=== PATIENT | female | born 1960 | race Caucasian/White ===

== ENCOUNTER → 2016-09-12 | Outpatient (REF) | payer OTHER ==
[~2016-09-12] MED LIST: ALBU17IN INH; AVEL1TAB PO; AZEL0.055; AZMACORT PO; BENZ100C5 PO; GUAI20TA PO; LEVA750T PO; PARO40TA2 PO; PRED50TA PO; VITMTA PO; albuterol mdi PO
== END ==
LOC: M SFHCPLAZ 15:36
PROVIDERS: ATTEND Physician Assistant Medical
DX: Z12.11 Encounter for screening for malignant neoplasm of colon (principal); E04.1 Nontoxic single thyroid nodule; E55.9 Vitamin D deficiency, unspecified; Z53.9 Procedure and treatment not carried out, unspecified reason

== ENCOUNTER → 2016-09-17 | Outpatient (CLI) | payer OTHER ==
--- NOTE | 2016-09-18 07:32 | REP ---
Clinical: Lung screening. History smoking. Technique: Axial noncontrast low-dose images from the thoracic inlet to the upper abdomen using lung screening technique. Comparison: 05/26/2016, 11/14/2012. Findings: Moderate bullous emphysematous changes and scattered interstitial changes again noted primarily involving the upper lung zones (right greater than left). A 6 mm noncalcified nodular density in the left upper lobe (images 42 - 43) is relatively similar when compared to prior examinations. No further obvious pulmonary nodule or mass lesion identified. No pleural effusion/reaction. No pneumothorax. Impression: Lung-RADS category IIS. 6 mm nodular density in the GAUTAM and emphysematous changes are similar to prior examinations dating to 2012. Yearly screening may be warranted. Signed by Ethan Keenan MD 09/18/2016 07:24 A
== END ==
LOC: M RAD 12:39
PROVIDERS: ATTEND Internal Medicine Pulmonary Disease
DX: Z12.2 Encounter for screening for malignant neoplasm of respiratory organs (principal); R91.8 Other nonspecific abnormal finding of lung field; F17.210 Nicotine dependence, cigarettes, uncomplicated

== ENCOUNTER → 2016-09-17 | Outpatient (CLI) | payer OTHER ==
[2016-09-17 10:41] LABS: BASO % 0.9 % (0.0-1.0); EOS # 0.1 K/mm3 (0.0-0.50); EOS % 2.2 % (0.0-3.0); LARGE UNSTAINED CELL # 0.1 K/mm3 (0.0-0.4); LARGE UNSTAINED CELL % 1.6 % (0.0-4.0); LYMPH # 1.5 K/mm3 (1.5-4.5); LYMPH % 34.3 % (24.0-44.0); MEAN CORPUSCULAR HGB CONC 33.6 g/dl (32.0-36.5); MEAN CORPUSCULAR VOLUME 89.4 fl (80.0-96.0); MONO # 0.3 K/mm3 (0.0-0.8); MONO % 6.7 % (0.0-5.0); NEUTROPHILS # 2.3 K/mm3 (1.8-7.7); NEUTROPHILS % 54.3 % (36.0-66.0); PLATELET COUNT, AUTOMATED 219 k/mm3 (150-450); RED CELL DISTRIBUTION WIDTH 12.4 % (11.5-14.5); WHITE BLOOD COUNT 4.2 K/mm3 (4.0-10.0)
[2016-09-17 11:03] LABS: FREE T4 1.06 NG/DL (0.76-1.46)
--- NOTE | 2016-09-17 12:16 | REP ---
CERVICAL SPINE, SIX VIEWS: HISTORY: Cervicalgia. There is no acute fracture. The C5-6 intervertebral disc is decreased in height consistent with disc degeneration. Anterior osteophytes are present on C5. There are 1.5 mm of retrolisthesis of C3 on C4. This reduces with flexion and returns to a 1.5 mm with extension. IMPRESSION: Degenerative change as described above. Signed by Ranjith Flores MD 09/17/2016 12:18 P
--- NOTE | 2016-09-17 13:32 | REP ---
RIGHT SHOULDER, THREE VIEWS: HISTORY: Pain. There is no acute fracture or dislocation. There is narrowing of the acromioclavicular joint with associated osteophyte formation. IMPRESSION: Degenerative change as described above. Signed by Ranjith Flores MD 09/17/2016 01:40 P
== END ==
LOC: M LAB 09:38
PROVIDERS: ATTEND Physician Assistant Medical
DX: M19.011 Primary osteoarthritis, right shoulder (principal); M47.892 Other spondylosis, cervical region; E55.9 Vitamin D deficiency, unspecified; E04.1 Nontoxic single thyroid nodule; Z12.11 Encounter for screening for malignant neoplasm of colon

== ENCOUNTER → 2016-10-17 | Outpatient (CLI) | payer OTHER ==
[~2016-10-17] VITALS: Ht 167.6 cm; Wt 66.7 kg
[~2016-10-17] MED LIST changes: +ALBU17IN2 INH; +ASPI1TAB PO; +BREO1INH3 INH; +DRIS50002 PO; +INCR1INH INH; +LIDOCAINE 2% INJ 100 MG/5 ML SDV (FOR ANES.) As Ordered ONE; +NS 1,000 ML IV ONE; +PROPOFOL 500 MG/50 ML VIAL As Ordered ONE
--- NOTE | 2016-10-17 11:16 | ROOR ---
Patient Name: Grecia Jeong Procedure Date: 10/17/2016 10:47 AM Date of : 1960 Age: 56 Room: [facility] Gender: Female Note Status: Finalized Procedure: Colonoscopy Indications: Screening for colorectal malignant neoplasm Providers: Juan COLUNGA MD Referring MD: April Gray Requesting Provider: Medicines: Monitored Anesthesia Care Complications: No immediate complications. Procedure: Pre-Anesthesia Assessment: - The heart rate, respiratory rate, oxygen saturations, blood pressure, adequacy of pulmonary ventilation, and response to care were monitored throughout the procedure. The Colonoscope was introduced through the anus and advanced to the cecum, identified by appendiceal orifice and ileocecal valve. The colonoscopy was performed without difficulty. The patient tolerated the procedure well. The quality of the bowel preparation was good. Findings: The perianal and digital rectal examinations were normal. Two sessile polyps were found in the ascending colon and cecum. The polyps were 4 to 5 mm in size. These polyps were removed with a cold snare. Resection and retrieval were complete. A 5 mm polyp was found in the splenic flexure. The polyp was sessile. The polyp was removed with a cold snare. Resection and retrieval were complete. Two sessile polyps were found in the sigmoid colon. The polyps were 4 to 5 mm in size. These polyps were removed with a cold snare. Resection and retrieval were complete. Three sessile polyps were found in the rectum. The polyps were 3 to 4 mm in size. These polyps were removed with a cold snare. Resection and retrieval were complete. Small Internal Hemorrhoids. A few small-mouthed diverticula were found in the sigmoid colon. The exam was otherwise without abnormality on direct and retroflexion views. Impression: - Two 4 to 5 mm polyps in the ascending colon and in the cecum, removed with a cold snare. Resected and retrieved. - One 5 mm polyp at the splenic flexure, removed with a cold snare. Resected and retrieved. - Two 4 to 5 mm polyps in the sigmoid colon, removed with a cold snare. Resected and retrieved. - Three 3 to 4 mm polyps in the rectum, removed with a cold snare. Resected and retrieved. - Small Internal Hemorrhoids. - Mild diverticulosis in the sigmoid colon. - The examination was otherwise normal on direct and retroflexion views. Recommendation: - Repeat colonoscopy in 3 years for surveillance. Juan Colunga MD Juan COLUNGA MD 10/17/2016 11:15:28 AM This report has been signed electronically. Number of Addenda: 0 Note Initiated On: 10/17/2016 10:47 AM Estimated Blood Loss: Estimated blood loss: none.
[2016-10-17 11:40] VITALS: BP 119/64
== END | disposition home or self-care (01) ==
LOC: M OPP 09:14
PROVIDERS: ATTEND Internal Medicine Gastroenterology
DX: Z12.11 Encounter for screening for malignant neoplasm of colon (principal); D12.2 Benign neoplasm of ascending colon; D12.3 Benign neoplasm of transverse colon; D12.5 Benign neoplasm of sigmoid colon; D12.8 Benign neoplasm of rectum; K57.30 Diverticulosis of large intestine without perforation or abscess without bleeding; K64.8 Other hemorrhoids; M19.90 Unspecified osteoarthritis, unspecified site; M54.2 Cervicalgia; M54.89 Other dorsalgia; J44.9 Chronic obstructive pulmonary disease, unspecified; F17.290 Nicotine dependence, other tobacco product, uncomplicated; Z79.82 Long term (current) use of aspirin; Z79.899 Other long term (current) drug therapy; Z80.3 Family history of malignant neoplasm of breast; Z80.0 Family history of malignant neoplasm of digestive organs

== ENCOUNTER → 2016-11-18 | Outpatient (CLI) | payer OTHER ==
[~2016-11-18] MED LIST changes: -LIDOCAINE 2% INJ 100 MG/5 ML SDV (FOR ANES.) As Ordered ONE; -NS 1,000 ML IV ONE; -PROPOFOL 500 MG/50 ML VIAL As Ordered ONE
--- NOTE | 2016-11-18 16:01 | REP ---
BILATERAL MAMMOGRAM, BASELINE STUDY: FAMILY HISTORY: Breast cancer in mother and maternal aunt. Bilateral MLO and CC views are performed. Nodule is seen in the outer right breast measuring about 1.1 cm in diameter, oval in shape and appearing fairly well defined. There appear to be tiny calcifications in the upper outer quadrant of the left breast. Additional views are required. IMPRESSION: ACR 0 incomplete. Oval 1.1 cm nodule in the outer right breast. Recommend spot compression views and ultrasound to further evaluate. Tiny calcifications seen in the upper outer quadrant of the left breast. Magnification views are recommended. BI-RADS/ACR category 0 mammogram. Incomplete. Additional imaging and/or prior images are needed before a final assessment can be assigned. This mammogram was interpreted with the aid of an FDA-approved computer-aided detection system. The patient states she/he has not had a clinical breast exam in over a year. The patient letter being requested is M0.
--- NOTE | 2016-11-19 05:20 | REP ---
Clinical: Follow-up thyroid nodule. Technique: Real time art scale ultrasound examination using linear high frequency transducer. Comparison: 01/14/2013. Findings: The thyroid gland is mildly enlarged and diffusely heterogeneous. The right lobe measures 5.8 x 1.6 x 1.6 cm and includes 8 mm cyst and 5 mm complex nodule in the mid pole region. Left lobe measures 4.9 x 1.5 x 1.3 cm without significant discrete lesion. Isthmus measures 2.8 mm in width. Impression: Heterogeneous thyroid gland with most prominent findings as described above including 8 mm cyst and 5 mm complex nodule in the right lobe mid pole region. Signed by Ethan Keenan MD 11/19/2016 05:11 A
== END ==
LOC: M WHC 12:54
PROVIDERS: ATTEND Physician Assistant Medical
DX: R92.2 Inconclusive mammogram (principal); E04.1 Nontoxic single thyroid nodule
CPT/HCPCS: 76536; G0202

== ENCOUNTER → 2016-11-22 | Outpatient (CLI) | payer OTHER ==
--- NOTE | 2016-11-22 13:33 | REP ---
BILATERAL DIAGNOSTIC MAMMOGRAM WITH RIGHT BREAST ULTRASOUND: Bilateral diagnostic mammogram performed. Correlation made with recent baseline mammogram of 11/18/2016. There is a family history of breast cancer in mother and maternal aunt. Spot compression views of the right breast again show a 1 cm oval well defined and smoothly marginated nodule in the outer right breast. Magnification views of the left breast confirm the presence of multiple clustered pleomorphic microcalcifications in the upper outer quadrant of the left breast. Sterotactic biopsy is recommended. Real-time sonographic evaluation of the outer right breast demonstrates a cyst measuring 10 x 5 x 8 mm. IMPRESSION: ACR 4 suspicious mammogram left breast. Clustered pleomorphic microcalcifications in the upper outer quadrant of the left breast are confirmed. Recommend sterotactic biopsy of these calcifications in the left breast. ACR 2 benign mammogram right breast with a nodule identified laterally in the right breast corresponding to a cyst by ultrasound. The patient letter being requested is M4. Signed by Chadd Mahajan MD 11/22/2016 03:28 P
== END ==
LOC: M RAD 11:25
PROVIDERS: ATTEND Internal Medicine
DX: R92.2 Inconclusive mammogram (principal); N63 Unspecified lump in breast
CPT/HCPCS: 76642; G0204

== ENCOUNTER → 2016-12-09 | Outpatient (CLI) | payer OTHER ==
[~2016-12-09] MED LIST changes: -AVEL1TAB PO; +AVEL1TAB3 PO; -LEVA750T PO; +LEVA750T7 PO; +NAPR500T3 PO; +NORCOTAB PO; +PROT1TAB2 PO; +SUCR1SS PO; +VITA-171 PO; +muscle relaxer
== END ==
LOC: M LAB 09:51
PROVIDERS: ATTEND Physician Assistant Medical
DX: E55.9 Vitamin D deficiency, unspecified (principal)

== ENCOUNTER → 2016-12-16 | Outpatient (CLI) | payer OTHER ==
[~2016-12-16] MED LIST changes: +LIDOCAINE 1% MDV 20ML VIAL As Ordered ONE
--- NOTE | 2016-12-16 13:23 | REP ---
Specimen radiography left breast. History: Suspicious microcalcifications seen on recent mammography. Findings: Specimen radiography demonstrates numerous polymorphic heterogeneous microcalcifications in at least five of the six removed specimens. Impression: Specimen radiography demonstrates microcalcifications. Signed by Slick Ruff MD 12/16/2016 04:23 P
--- NOTE | 2016-12-16 13:38 | REP ---
Digital diagnostic unilateral left breast mammography with CAD: History: Marker clip placement views post stereotactic needle biopsy. Findings: CC and true MLO views of the left breast obtained just post needle biopsy demonstrate the marker clip in good position adjacent to the area where prior mammography from November 22, 2016 showed microcalcifications. No hematoma is seen. Impression: Marker clip in good position. Signed by Slick Ruff MD 12/16/2016 04:23 P
--- NOTE | 2016-12-16 17:00 | REP ---
STEREOTACTIC LEFT BREAST BIOPSY: The procedure was performed under the direct supervision of Dr. Ruff. The patient has a history of clustered pleomorphic microcalcifications in the upper outer quadrant of the left breast seen on a previous mammogram dated 11/22/2016. The risks and benefits of the procedure were explained to the patient and informed consent was obtained. A cranial caudal approach was utilized. The calcifications were localized using stereotactic mammographic guidance. The skin was prepped and draped in a sterile fashion 1% Xylocaine was used as a local anesthetic. An 8-gauge suction assisted Mammotome needle was inserted and 6 core biopsy samples were obtained. Specimen radiograph demonstrates the presence of calcifications to be within the specimen. A marker clip was placed at the biopsy site. The patient tolerated the procedure well and there were no immediate complications. After the appropriate amount of monitored convalescence the patient was discharged from the department. Reviewed by ARIANNA Hood 12/17/2016 09:05 AEdited and Signed by Slick Ruff MD 12/17/2016 04:00 P
== END ==
LOC: M RADPRO 10:53
PROVIDERS: ATTEND Physician Assistant Medical
DX: D24.2 Benign neoplasm of left breast (principal); R92.0 Mammographic microcalcification found on diagnostic imaging of breast; Z72.0 Tobacco use; Z91.040 Latex allergy status; Z79.82 Long term (current) use of aspirin; Z79.899 Other long term (current) drug therapy

== ENCOUNTER 2016-12-21 06:21 | Emergency (ER) | payer OTHER ==
[~2016-12-21] VITALS: Ht 162.6 cm; Wt 67.3 kg
[~2016-12-21 06:21] MED LIST changes: -LIDOCAINE 1% MDV 20ML VIAL As Ordered ONE; -NAPR500T3 PO; -NORCOTAB PO; -PROT1TAB2 PO; -SUCR1SS PO; -VITA-171 PO; -muscle relaxer
[2016-12-21] MEDS ORDERED: VITA-171 PO (06:31)
[2016-12-21] MEDS ORDERED: muscle relaxer (06:31)
[2016-12-21] MEDS ORDERED: NAPR500T3 PO (08:29)
[2016-12-21 08:41] VITALS: BP 129/69
--- NOTE | 2016-12-21 09:30 | REP ---
RIGHT SHOULDER, THREE VIEWS: There is no evidence of an acute fracture, dislocation or intrinsic bone disease. IMPRESSION: No fracture or dislocation. Signed by Chadd Mahajan MD 12/21/2016 03:18 P
== END 2016-12-21 08:46 | disposition home or self-care (01) ==
LOC: M ED 06:21
DX: M75.31 Calcific tendinitis of right shoulder (principal); J45.909 Unspecified asthma, uncomplicated; M19.90 Unspecified osteoarthritis, unspecified site; F17.210 Nicotine dependence, cigarettes, uncomplicated; Z91.040 Latex allergy status

== ENCOUNTER 2016-12-30 11:10 | Emergency (ER) | payer OTHER ==
[~2016-12-30] VITALS: Ht 165.1 cm; Wt 148.0 kg
[~2016-12-30 11:10] MED LIST changes: +NAPR500T3 PO; +VITA-171 PO; +muscle relaxer
[2016-12-30 11:48] LABS: BASO % 0.5 % (0.0-1.0); EOS # 0.2 K/mm3 (0.0-0.50); EOS % 2.5 % (0.0-3.0); LARGE UNSTAINED CELL # 0.1 K/mm3 (0.0-0.4); LARGE UNSTAINED CELL % 0.9 % (0.0-4.0); LYMPH # 1.5 K/mm3 (1.5-4.5); LYMPH % 23.7 % (24.0-44.0); MEAN CORPUSCULAR HEMOGLOBIN 30.6 pg (27.0-33.0); MEAN CORPUSCULAR HGB CONC 33.7 g/dl (32.0-36.5); MEAN CORPUSCULAR VOLUME 90.9 fl (80.0-96.0); MONO # 0.3 K/mm3 (0.0-0.8); MONO % 5.5 % (0.0-5.0); NEUTROPHILS # 4.1 K/mm3 (1.8-7.7); NEUTROPHILS % 66.8 % (36.0-66.0); PLATELET COUNT, AUTOMATED 244 k/mm3 (150-450); RED CELL DISTRIBUTION WIDTH 12.7 % (11.5-14.5); WHITE BLOOD COUNT 6.1 K/mm3 (4.0-10.0)
[2016-12-30 11:54] LABS: INR 0.98
[2016-12-30 12:10] LABS: ALBUMIN 3.3 GM/DL (3.2-5.2); ALBUMIN/GLOBULIN RATIO 0.85 (1.00-1.93); ALKALINE PHOSPHATASE 89 U/L (45-117); ALT/SGPT 14 U/L (12-78); ANION GAP 5 MEQ/L (8-16); AST/SGOT 12 U/L (15-37); BILIRUBIN,DIRECT < 0.1 MG/DL (0.0-0.2); BILIRUBIN,TOTAL 0.3 MG/DL (0.2-1.0); BLOOD UREA NITROGEN 19 MG/DL (7-18); CARBON DIOXIDE LEVEL 27 MEQ/L (21-32); CHLORIDE LEVEL 108 MEQ/L (98-107); CREATININE FOR GFR 0.67 MG/DL (0.55-1.02); FREE T4 1.13 NG/DL (0.76-1.46); GLOMERULAR FILTRATION RATE > 60.0 (>51); GLUCOSE, FASTING 93 MG/DL (70-105); POTASSIUM SERUM 3.9 MEQ/L (3.5-5.1); SODIUM LEVEL 140 MEQ/L (136-145); TOTAL PROTEIN 7.2 GM/DL (6.4-8.2)
[2016-12-30] MEDS ORDERED: MORPHINE 4 MG/ML 1ML SYRINGE IV ONE (12:30)
[2016-12-30] MEDS ORDERED: ISOVUE-370 76% 100ML VIAL (Q9967) As Ordered ONE (13:14)
--- NOTE | 2016-12-30 13:14 | REP ---
REASON: Chest pain. COMPARISON: 05/24/2016 FINDINGS: The technique utilized in obtaining the radiograph has magnified the cardiac silhouette and accentuated the interstitial markings. The superior mediastinal structures are midline. The cardiac silhouette is unremarkable in size, shape, and position. The diaphragmatic surfaces of the lungs are regular, and the costophrenic angles are clear. The pulmonary kenny are clear. The imaged osseous structures are intact. IMPRESSION: There is no acute cardiopulmonary disease. Signed by David Lofton DO 12/30/2016 01:53 P
[2016-12-30] MEDS ORDERED: NS 1,000 ML IV ONE (13:15)
[2016-12-30] MEDS ORDERED: KETOROLAC 30 MG/ML VIAL (J1885) IV ONE (13:15)
[2016-12-30] MEDS ORDERED: GI COCKTAIL 50ML BTL(HYOSCYAMINE/MAALOX/LIDOCAINE VISCOUS)(1:3:1) PO ONE (14:15)
[2016-12-30] MEDS ORDERED: PANTOPRAZOLE 40MG TAB (PROTONIX) PO ONE (15:00)
[2016-12-30] MEDS ORDERED: NORCO, ANEXSIA 5/325MG TABLET (HYDROcodone/ACETAMINOPHEN) PO ONE (15:00)
[2016-12-30] MEDS ORDERED: SUCRALFATE SUSP 1GM/10ML UD PO ONE (15:00)
--- NOTE | 2016-12-30 15:07 | REP ---
CT angiogram of the chest 12/30/2016 Comparison portable chest 12/30/2016, CT angiogram chest 06/17/2015. The patient received a bolus that of 75 mL of Isovue 370 scanning through the chest with MIP reformatting of both coronal and sagittal thick slab reconstructions. Findings: There is some dependent atelectatic changes in both lower lung zones posteriorly. I see no dense consolidation, acute infiltrate or parenchymal mass. There is a small Bochdalek hernia posteriorly in the right diaphragm. Central lobular emphysematous changes mid and upper lung zones bilaterally, left greater than right but unchanged. Heart is not enlarged. There is no pericardial thickening or effusion. There is some calcifications of the arch but no aneurysm or dissection in the aorta. The main, right and left pulmonary arteries are without persistent filling defects. There is a small air bubble in the main pulmonary artery segment seen on image 96. Unopacified blood in the right mediastinum in the SVC. The main right and left pulmonary arteries are without thrombus. Were also intact with no vessel cutoff or filling defects. In the upper abdomen that portion of liver and spleen included were intact without acute finding. Adrenal glands and upper poles of the kidneys along with the visualized portion of pancreas and gallbladder which were incompletely visualized show no acute finding. Impression: 1. No CT evidence of pulmonary thromboembolism. There is a tiny air bubble in the main pulmonary artery segment consistent with venous injection. 2. No pathologic sized mediastinal or hilar adenopathy. 3. No aortic aneurysm or dissection. Signed by Lit Farr MD 12/30/2016 09:22 P
[2016-12-30] MEDS ORDERED: PROT1TAB2 PO (15:27)
[2016-12-30] MEDS ORDERED: SUCR1SS PO (15:27)
[2016-12-30] MEDS ORDERED: NORCOTAB PO (15:27)
[2016-12-30 15:47] VITALS: BP 106/53
--- NOTE | 2016-12-30 18:37 | ECGEPIP ---
Stationary ECG Study [facility] - ED Test Date: 2016-12-30 Pat Name: BHARATHI JUAREZ Department: Room: - Gender: F Patient Observer: mamta : 1960 Requested By: Carrie Hill Order Number: [id number] Reading MD: Conrad Pierce Measurements Intervals Juliette Rate: 60 P: 55 WA: 176 QRS: 23 QRSD: 82 T: 39 QT: 405 QTc: 407 Interpretive Statements SINUS RHYTHM Electronically Signed On 12-30-2016 18:36:56 EDT by Conrad Pierce
== END 2016-12-30 15:51 | disposition home or self-care (01) ==
LOC: M ED 11:10
DX: R07.89 Other chest pain (principal); J45.909 Unspecified asthma, uncomplicated; Z72.0 Tobacco use
CPT/HCPCS: 71010; 71275; 80048; 80076; 82550; 82553; 83690; 84439; 84443; 85025; 85379; 85610; 85730; 93000; 93041; 94760; 96374; 96375; 99285; J1885; Q9967

== ENCOUNTER 2017-02-02 16:25 | Emergency (ER) | payer OTHER ==
[~2017-02-02] VITALS: Ht 165.1 cm; Wt 150.0 kg
[~2017-02-02 16:25] MED LIST changes: +NORCOTAB PO; +PROT1TAB2 PO; +SUCR1SS PO
--- NOTE | 2017-02-02 18:03 | REP ---
Clinical: Trauma. Fall. Technique: AP, lateral, bilateral oblique views of the left elbow. Findings: Soft tissue swelling is appreciated. Lateral view demonstrates joint effusion and AP and oblique views suggest a nondisplaced fracture involving the radial head. Impression: Swelling and effusion. Nondisplaced radial head fracture. Signed by Ethan Keenan MD 02/02/2017 05:55 P
[2017-02-02] MEDS ORDERED: NORCOTAB PO (18:23)
[2017-02-02] MEDS ORDERED: NORCO 5/325MG TABLET (BULK FOR ED) PO ONE (18:30)
[2017-02-02 18:38] VITALS: BP 125/62
--- NOTE | 2017-02-02 18:49 | REP ---
Clinical: Trauma. Technique: AP, lateral left forearm. Findings: The osseous structures and joint spaces are intact and normal. There is no evidence for acute fracture or dislocation. However, lateral view suggests joint effusion which may reflect occult injury at the elbow. No subcutaneous emphysema or radiodense foreign body. Impression: No definite acute fracture or dislocation. Joint effusion at the elbow cannot exclude occult injury. Signed by Ethan Keenan MD 02/02/2017 06:47 P
== END 2017-02-02 18:39 | disposition home or self-care (01) ==
LOC: M ED 16:25
DX: S52.125A Nondisplaced fracture of head of left radius, initial encounter for closed fracture (principal); W19.XXXA Unspecified fall, initial encounter; Y92.099 Unspecified place in other non-institutional residence as the place of occurrence of the external cause; Y93.89 Activity, other specified; Y99.9 Unspecified external cause status

== ENCOUNTER 2017-02-11 13:58 | Outpatient (RCR) | payer OTHER | END 2017-03-01 | LOC: M PT 13:58 | PROVIDERS: ATTEND Physician Assistant Medical | DX: Z51.89 Encounter for other specified aftercare (principal); M50.30 Other cervical disc degeneration, unspecified cervical region ==

== ENCOUNTER → 2017-12-10 | Outpatient (REF) | payer OTHER ==
[2017-12-10 17:57] LABS: VITAMIN B12 LEVEL 1148 PG/ML
[2017-12-10 17:58] LABS: FOLATE 17.6 NG/ML
[2017-12-10 18:02] LABS: FREE T4 1.12 NG/DL (0.76-1.46); RHEUMATOID FACTOR QUANT < 10.0 IU/ML (<15.0); THYROID STIMULATING HORMONE 0.976 uIU/ML (0.358-3.740); TOTAL PROTEIN 7.6 GM/DL (6.4-8.2)
[2017-12-11 14:00] LABS: ALBUMIN 3.93 GM/DL (3.29-5.55); ALBUMIN % 51.7 % (55.8-66.1); ALPHA-1-GLOBULIN % 5.1 % (2.9-4.9); ALPHA-1-GLOBULINS 0.39 GM/DL (0.17-0.41); ALPHA-2-GLOBULINS 0.87 GM/DL (0.42-0.99); ALPHA-2-GLOBULINS % 11.4 % (7.1-11.8); BETA-1-GLOBULINS 0.48 GM/DL (0.28-0.60); BETA-1-GLOBULINS % 6.3 % (4.7-7.2); BETA-2-GLOBULINS 0.43 GM/DL (0.19-0.55); BETA-2-GLOBULINS % 5.7 % (3.2-6.5); GAMMA GLOBULIN % 19.8 % (11.1-18.8)
[2017-12-16 11:00] LABS: DRVV SCREEN 40.2 SEC
[2017-12-20 08:05] LABS: ANTI DOUBLE STRAND-DNA AB 1 IU/mL (0-9); ANTINUCLEAR ANTIBODIES DIRECT Positive (Negative); RNP ANTIBODIES 0.4 AI (0.0-0.9); SJOGREN'S ANTI SS-A <0.2 AI (0.0-0.9); SJOGREN'S ANTI SS-B <0.2 AI (0.0-0.9); SMITH ANTIBODIES <0.2 AI (0.0-0.9); VITAMIN B1 LEVEL WHOLE BLOOD 134.3 nmol/L (66.5-200.0); VITAMIN B6,PYRIDOXAL PHOSPHATE 2.9 ug/L (2.0-32.8); VITAMIN E(ALPHA TOCOPHEROL) 8.4 mg/L (7.0-25.1); VITAMIN E(GAMMA TOCOPHEROL) 2.9 mg/L (0.5-5.5)
== END ==
LOC: M LABNEURO 11:45
DX: G62.9 Polyneuropathy, unspecified (principal)
CPT/HCPCS: 82746

== ENCOUNTER → 2017-12-12 | Outpatient (REF) | payer OTHER ==
[2017-12-12 15:22] LABS: ERYTHROCYTE SEDIMENTATION RATE 33 mm/hr (0-30)
== END ==
LOC: M LABNEURO 11:23
DX: Z00.00 Encounter for general adult medical examination without abnormal findings (principal)
CPT/HCPCS: 85652

== ENCOUNTER → 2018-01-08 | Outpatient (CLI) | payer OTHER | LOC: M RAD 14:10 | DX: E04.1 Nontoxic single thyroid nodule (principal) | CPT/HCPCS: 76536 ==

== ENCOUNTER → 2018-01-16 | Outpatient (REF) | payer OTHER ==
[2018-01-16 16:27] LABS: BASO % 0.3 % (0.0-1.0); EOS % 0.4 % (0.0-3.0); HEMATOCRIT 38.9 % (36.0-47.0); HEMOGLOBIN 12.9 g/dl (12.0-15.5); IMMATURE GRANULOCYTE % 0.4 % (0-3.0); LYMPH # 1.7 10^3/uL (1.5-4.5); LYMPH % 15.6 % (24.0-44.0); MEAN CORPUSCULAR HEMOGLOBIN 30.2 pg (27.0-33.0); MEAN CORPUSCULAR HGB CONC 33.2 g/dl (32.0-36.5); MEAN CORPUSCULAR VOLUME 91.1 fl (80.0-96.0); MONO # 0.9 10^3/uL (0.0-0.8); MONO % 8.5 % (0.0-5.0); NEUTROPHILS % 74.8 % (36.0-66.0); PLATELET COUNT, AUTOMATED 269 10^3/uL (150-450); RED BLOOD COUNT 4.27 10^6/uL (4.00-5.40); RED CELL DISTRIBUTION WIDTH 12.2 % (11.5-14.5); WHITE BLOOD COUNT 10.7 10^3/uL (4.0-10.0)
[2018-01-16 16:36] LABS: ALBUMIN 3.3 GM/DL (3.2-5.2); ALBUMIN/GLOBULIN RATIO 0.73 (1.00-1.93); ALKALINE PHOSPHATASE 105 U/L (45-117); ALT/SGPT 15 U/L (12-78); ANION GAP 10 MEQ/L (8-16); AST/SGOT 8 U/L (7-37); BILIRUBIN,TOTAL 0.6 MG/DL (0.2-1.0); BLOOD UREA NITROGEN 11 MG/DL (7-18); CALCIUM LEVEL 8.9 MG/DL (8.5-10.1); CARBON DIOXIDE LEVEL 22 MEQ/L (21-32); CHLORIDE LEVEL 106 MEQ/L (98-107); CHOLESTEROL LEVEL 160 MG/DL (<200); CHOLESTEROL RISK RATIO 2.461 (<5); CREATININE FOR GFR 0.88 MG/DL (0.55-1.30); GLOMERULAR FILTRATION RATE > 60.0 (>51); GLUCOSE, FASTING 94 MG/DL (70-100); HDL CHOLESTEROL 65 MG/DL (>40); LDL CHOLESTEROL 79.6 MG/DL (<100); NON-HDL-C 95 MG/DL; POTASSIUM SERUM 4.1 MEQ/L (3.5-5.1); SODIUM LEVEL 138 MEQ/L (136-145); TOTAL PROTEIN 7.8 GM/DL (6.4-8.2); TRIGLYCERIDES LEVEL 77 MG/DL (<150)
[2018-01-16 16:42] LABS: TOTAL 25(OH) VITAMIN D 17.9 NG/ML (30.0-100.0)
== END ==
LOC: M LABDRAW1 13:13
DX: E55.9 Vitamin D deficiency, unspecified (principal); E04.1 Nontoxic single thyroid nodule; M25.519 Pain in unspecified shoulder; Z13.220 Encounter for screening for lipoid disorders

== ENCOUNTER → 2018-01-16 | Outpatient (REF) | payer OTHER ==
[2018-01-16 16:32] LABS: TOTAL PROTEIN,RANDOM URINE 22.5 MG/DL (0.0-12.0)
== END ==
LOC: M LABDRAW1 13:11
DX: Z00.00 Encounter for general adult medical examination without abnormal findings (principal)
CPT/HCPCS: 36415

== ENCOUNTER 2018-01-21 10:53 | Emergency (ER) | payer OTHER | END 2018-01-21 14:15 | disposition home or self-care (01) | LOC: M ED 10:53 | DX: R20.2 Paresthesia of skin (principal); M25.50 Pain in unspecified joint; J44.9 Chronic obstructive pulmonary disease, unspecified; M54.12 Radiculopathy, cervical region; G89.29 Other chronic pain; M54.5 Low back pain; D72.819 Decreased white blood cell count, unspecified; Z79.899 Other long term (current) drug therapy; Z79.51 Long term (current) use of inhaled steroids; Z91.040 Latex allergy status; F17.210 Nicotine dependence, cigarettes, uncomplicated | CPT/HCPCS: 99283 ==

== ENCOUNTER → 2018-01-22 | Outpatient (CLI) | payer OTHER | LOC: M RAD 10:04 | DX: N63.20 Unspecified lump in the left breast, unspecified quadrant (principal); N60.11 Diffuse cystic mastopathy of right breast | CPT/HCPCS: 77066 ==

== ENCOUNTER → 2018-02-09 | Outpatient (CLI) | payer OTHER ==
[~2018-02-09] MED LIST changes: -ALBU17IN INH; -ALBU17IN2 INH; -ASPI1TAB PO; -AVEL1TAB3 PO; -AZEL0.055; -AZMACORT PO; -BENZ100C5 PO; -BREO1INH3 INH; -DRIS50002 PO; -GUAI20TA PO; -INCR1INH INH; -LEVA750T7 PO; +LIDOCAINE 1% MDV 20ML VIAL As Ordered; -NAPR500T3 PO; -NORCOTAB PO; -PARO40TA2 PO; -PRED50TA PO; -PROT1TAB2 PO; -SUCR1SS PO; -VITA-171 PO; -VITMTA PO; -albuterol mdi PO; -muscle relaxer
== END ==
LOC: M RADPRO 08:13
DX: N63.20 Unspecified lump in the left breast, unspecified quadrant (principal); C50.912 Malignant neoplasm of unspecified site of left female breast; Z91.040 Latex allergy status
CPT/HCPCS: 19083

== ENCOUNTER → 2018-04-13 | Outpatient (REF) | payer OTHER ==
[~2018-04-13] MED LIST changes: +ALBU17IN INH; +ALBU17IN2 INH; +ASPI1TAB PO; +AVEL1TAB3 PO; +AZEL0.055; +AZMACORT PO; +BENZ-18 PO; +BREO1INH3 INH; +DRIS50003 PO; +GUAI20TA PO; +INCR1INH INH; +LEVA750T7 PO; -LIDOCAINE 1% MDV 20ML VIAL As Ordered; +LYRI75CA PO; +NAPR-885 PO; +NORCOTAB PO; +PARO40TA2 PO; +PRED50TA PO; +PROT1TAB2 PO; +SUCR1SS PO; +VITA-171 PO; +VITMTA PO; +albuterol mdi PO; +muscle relaxer
[2018-04-13 17:48] LABS: BASO # 0.1 10^3/uL (0.0-0.2); BASO % 0.7 % (0.0-1.0); EOS # 0.2 10^3/uL (0.0-0.50); EOS % 1.3 % (0.0-3.0); HEMATOCRIT 37.8 % (36.0-47.0); HEMOGLOBIN 12.6 g/dl (12.0-15.5); MEAN CORPUSCULAR HEMOGLOBIN 29.9 pg (27.0-33.0); MEAN CORPUSCULAR HGB CONC 33.3 g/dl (32.0-36.5); MEAN CORPUSCULAR VOLUME 89.6 fl (80.0-96.0); MONO # 0.7 10^3/uL (0.0-0.8); MONO % 5.2 % (0.0-5.0); NEUTROPHILS # 8.2 10^3/uL (1.8-7.7); NEUTROPHILS % 59.9 % (36.0-66.0); PLATELET COUNT, AUTOMATED 408 10^3/uL (150-450); RED BLOOD COUNT 4.22 10^6/uL (4.00-5.40); WHITE BLOOD COUNT 13.7 10^3/uL (4.0-10.0)
[2018-04-13 17:58] LABS: C REACTIVE PROTEIN QUANTITATIV 0.65 MG/DL (0.00-0.30); URIC ACID 4.1 MG/DL (2.6-6.0)
[2018-04-13 19:02] LABS: ERYTHROCYTE SEDIMENTATION RATE 29 mm/hr (0-30)
[2018-04-16 00:07] LABS: ANA (HEP2) Negative (.); CYCLIC CITRULLINATED PEPTIDE 238 units (0-19)
== END ==
LOC: M SFHCLERA 14:02 → M LABNEURO 06-04 15:01
PROVIDERS: ATTEND Internal Medicine Rheumatology
DX: M25.50 Pain in unspecified joint (principal)

== ENCOUNTER → 2018-04-13 | Outpatient (CLI) | payer OTHER | LOC: M LRY 14:10 | DX: M85.841 Other specified disorders of bone density and structure, right hand (principal); M85.842 Other specified disorders of bone density and structure, left hand; M19.041 Primary osteoarthritis, right hand; M19.042 Primary osteoarthritis, left hand; M25.50 Pain in unspecified joint; M79.643 Pain in unspecified hand | CPT/HCPCS: 73110 ==

== ENCOUNTER → 2018-05-14 | Outpatient (REF) | LOC: M SMT 08:17 | DX: Z02.71 Encounter for disability determination (principal) ==

== ENCOUNTER → 2018-06-04 | Outpatient (REF) | payer OTHER ==
[2018-06-04 18:52] LABS: BASO % 0.5 % (0.0-1.0); EOS # 0.2 10^3/uL (0.0-0.50); EOS % 2.6 % (0.0-3.0); HEMOGLOBIN 13.3 g/dl (12.0-15.5); LYMPH # 2.4 10^3/uL (1.5-4.5); LYMPH % 28.4 % (24.0-44.0); MEAN CORPUSCULAR HEMOGLOBIN 29.9 pg (27.0-33.0); MEAN CORPUSCULAR HGB CONC 33.3 g/dl (32.0-36.5); MEAN CORPUSCULAR VOLUME 89.9 fl (80.0-96.0); MONO # 0.5 10^3/uL (0.0-0.8); MONO % 6.2 % (0.0-5.0); NEUTROPHILS # 5.3 10^3/uL (1.8-7.7); NEUTROPHILS % 62.1 % (36.0-66.0); PLATELET COUNT, AUTOMATED 338 10^3/uL (150-450); RED BLOOD COUNT 4.45 10^6/uL (4.00-5.40); WHITE BLOOD COUNT 8.6 10^3/uL (4.0-10.0)
[2018-06-04 19:51] LABS: ERYTHROCYTE SEDIMENTATION RATE 18 mm/hr (0-30)
== END ==
LOC: M LABNEURO 15:14
PROVIDERS: ATTEND Internal Medicine Rheumatology
DX: M05.79 Rheumatoid arthritis with rheumatoid factor of multiple sites without organ or systems involvement (principal)

== ENCOUNTER → 2018-06-04 | Outpatient (REF) | payer OTHER | LOC: M SFHCLERA 14:17 | PROVIDERS: ATTEND Internal Medicine Rheumatology | DX: M05.79 Rheumatoid arthritis with rheumatoid factor of multiple sites without organ or systems involvement (principal); M25.50 Pain in unspecified joint; Z53.8 Procedure and treatment not carried out for other reasons ==

== ENCOUNTER → 2018-06-30 | Outpatient (REF) | payer OTHER ==
[2018-06-30 15:04] LABS: BASO # 0.1 10^3/uL (0.0-0.2); BASO % 0.9 % (0.0-1.0); EOS # 0.1 10^3/uL (0.0-0.50); EOS % 1.8 % (0.0-3.0); HEMATOCRIT 39.1 % (36.0-47.0); HEMOGLOBIN 12.5 g/dl (12.0-15.5); LYMPH # 1.7 10^3/uL (1.5-4.5); LYMPH % 22.2 % (24.0-44.0); MEAN CORPUSCULAR HEMOGLOBIN 29.7 pg (27.0-33.0); MEAN CORPUSCULAR VOLUME 92.9 fl (80.0-96.0); MONO # 0.6 10^3/uL (0.0-0.8); MONO % 8.2 % (0.0-5.0); NEUTROPHILS # 5.1 10^3/uL (1.8-7.7); NEUTROPHILS % 66.5 % (36.0-66.0); PLATELET COUNT, AUTOMATED 306 10^3/uL (150-450); RED BLOOD COUNT 4.21 10^6/uL (4.00-5.40); WHITE BLOOD COUNT 7.6 10^3/uL (4.0-10.0)
[2018-06-30 15:11] LABS: ALBUMIN 3.4 GM/DL (3.2-5.2); ALT/SGPT 14 U/L (12-78); BILIRUBIN,TOTAL 0.3 MG/DL (0.2-1.0); BLOOD UREA NITROGEN 17 MG/DL (7-18); C REACTIVE PROTEIN QUANTITATIV 1.85 MG/DL (0.00-0.30); CALCIUM LEVEL 8.7 MG/DL (8.5-10.1); CARBON DIOXIDE LEVEL 26 MEQ/L (21-32); CHLORIDE LEVEL 110 MEQ/L (98-107); GLOMERULAR FILTRATION RATE > 60.0 (>51); GLUCOSE, FASTING 86 MG/DL (70-100); POTASSIUM SERUM 4.2 MEQ/L (3.5-5.1); SODIUM LEVEL 141 MEQ/L (136-145); TOTAL PROTEIN 6.7 GM/DL (6.4-8.2)
[2018-06-30 15:31] LABS: ERYTHROCYTE SEDIMENTATION RATE 28 mm/hr (0-30)
== END ==
LOC: M LABNEURO 13:17
PROVIDERS: ATTEND Internal Medicine Rheumatology
DX: M05.79 Rheumatoid arthritis with rheumatoid factor of multiple sites without organ or systems involvement (principal)

== ENCOUNTER → 2018-08-07 | Outpatient (REF) | payer OTHER ==
[2018-08-07 13:47] LABS: ALBUMIN 3.6 GM/DL (3.2-5.2); ALT/SGPT 15 U/L (12-78); BILIRUBIN,TOTAL 0.3 MG/DL (0.2-1.0); BLOOD UREA NITROGEN 19 MG/DL (7-18); C REACTIVE PROTEIN QUANTITATIV 0.49 MG/DL (0.00-0.30); CALCIUM LEVEL 9.1 MG/DL (8.5-10.1); CARBON DIOXIDE LEVEL 23 MEQ/L (21-32); CHLORIDE LEVEL 107 MEQ/L (98-107); CREATININE FOR GFR 0.96 MG/DL (0.55-1.30); GLOMERULAR FILTRATION RATE > 60.0 (>51); GLUCOSE, FASTING 111 MG/DL (70-100); SODIUM LEVEL 140 MEQ/L (136-145); TOTAL PROTEIN 7.1 GM/DL (6.4-8.2)
[2018-08-07 13:58] LABS: TOTAL 25(OH) VITAMIN D 16.2 NG/ML (30.0-100.0)
[2018-08-07 14:14] LABS: BASO # 0.1 10^3/uL (0.0-0.2); BASO % 0.7 % (0.0-1.0); EOS # 0.1 10^3/uL (0.0-0.50); EOS % 1.3 % (0.0-3.0); HEMATOCRIT 41.4 % (36.0-47.0); HEMOGLOBIN 13.4 g/dl (12.0-15.5); LYMPH # 1.5 10^3/uL (1.5-4.5); LYMPH % 22.4 % (24.0-44.0); MEAN CORPUSCULAR HEMOGLOBIN 30.1 pg (27.0-33.0); MEAN CORPUSCULAR HGB CONC 32.4 g/dl (32.0-36.5); MONO # 0.5 10^3/uL (0.0-0.8); MONO % 7.4 % (0.0-5.0); NEUTROPHILS # 4.7 10^3/uL (1.8-7.7); NEUTROPHILS % 67.9 % (36.0-66.0); PLATELET COUNT, AUTOMATED 243 10^3/uL (150-450); RED BLOOD COUNT 4.45 10^6/uL (4.00-5.40); WHITE BLOOD COUNT 6.9 10^3/uL (4.0-10.0)
[2018-08-07 14:51] LABS: ERYTHROCYTE SEDIMENTATION RATE 17 mm/hr (0-30)
== END ==
LOC: M LABNEURO 11:20
PROVIDERS: ATTEND Internal Medicine Rheumatology
DX: M05.79 Rheumatoid arthritis with rheumatoid factor of multiple sites without organ or systems involvement (principal)

== ENCOUNTER → 2018-10-15 | Outpatient (REF) | payer OTHER ==
[~2018-10-15] MED LIST changes: -ASPI1TAB PO; +ASPI81TA26 PO; +HYDR-3715 PO; -NORCOTAB PO
[2018-10-15 18:34] LABS: FREE T4 1.17 NG/DL (0.76-1.46); THYROID STIMULATING HORMONE 0.946 uIU/ML (0.358-3.740)
[2018-10-15 19:54] LABS: PTH INTACT 54.2 PG/ML (18.5-88.0); TOTAL 25(OH) VITAMIN D 58.8 NG/ML (30.0-100.0)
== END ==
LOC: M SFHCPLAZ 15:35
PROVIDERS: ATTEND Physician Assistant Medical
DX: E55.9 Vitamin D deficiency, unspecified (principal); E04.1 Nontoxic single thyroid nodule

== ENCOUNTER → 2018-11-17 | Outpatient (REF) | payer OTHER ==
[2018-11-17 13:32] LABS: BASO # 0.1 10^3/uL (0.0-0.2); EOS # 0.1 10^3/uL (0.0-0.50); EOS % 1.7 % (0.0-3.0); HEMATOCRIT 43.3 % (36.0-47.0); HEMOGLOBIN 14.3 g/dl (12.0-15.5); LYMPH # 1.9 10^3/uL (1.5-4.5); MEAN CORPUSCULAR HEMOGLOBIN 31.2 pg (27.0-33.0); MEAN CORPUSCULAR VOLUME 94.3 fl (80.0-96.0); MONO # 0.4 10^3/uL (0.0-0.8); MONO % 7.1 % (0.0-5.0); NEUTROPHILS # 3.3 10^3/uL (1.8-7.7); PLATELET COUNT, AUTOMATED 269 10^3/uL (150-450); RED BLOOD COUNT 4.59 10^6/uL (4.00-5.40); WHITE BLOOD COUNT 5.8 10^3/uL (4.0-10.0)
[2018-11-17 13:54] LABS: ALBUMIN 3.6 GM/DL (3.2-5.2); ALT/SGPT 17 U/L (12-78); BILIRUBIN,TOTAL 0.5 MG/DL (0.2-1.0); BLOOD UREA NITROGEN 19 MG/DL (7-18); CALCIUM LEVEL 9.4 MG/DL (8.5-10.1); CARBON DIOXIDE LEVEL 24 MEQ/L (21-32); CHLORIDE LEVEL 110 MEQ/L (98-107); CREATININE FOR GFR 0.71 MG/DL (0.55-1.30); GLOMERULAR FILTRATION RATE > 60.0 (>51); GLUCOSE, FASTING 96 MG/DL (70-100); POTASSIUM SERUM 4.1 MEQ/L (3.5-5.1); SODIUM LEVEL 141 MEQ/L (136-145); TOTAL PROTEIN 7.4 GM/DL (6.4-8.2)
[2018-11-17 14:11] LABS: ERYTHROCYTE SEDIMENTATION RATE 15 mm/hr (0-30)
== END ==
LOC: M LABNEURO 10:13
PROVIDERS: ATTEND Internal Medicine Rheumatology
DX: M05.79 Rheumatoid arthritis with rheumatoid factor of multiple sites without organ or systems involvement (principal)

== ENCOUNTER → 2018-11-17 | Outpatient (REF) | payer OTHER | LOC: M SFHCPLAZ 09:28 | PROVIDERS: ATTEND Internal Medicine Rheumatology | DX: Z53.9 Procedure and treatment not carried out, unspecified reason (principal); M05.79 Rheumatoid arthritis with rheumatoid factor of multiple sites without organ or systems involvement ==

== ENCOUNTER → 2018-11-17 | Outpatient (CLI) | payer OTHER ==
[~2018-11-17] MED LIST changes: +ISOVUE-370 76% 100ML VIAL (Q9967) As Ordered ONE
--- NOTE | 2018-11-17 12:59 | REP ---
Chest CT with IV contrast for follow up of left lung nodule: There is a 7 mm enhancing nodule anteriorly in the left upper lobe on image 42. This is unchanged from the chest CT's dated 12/30/2016, 09/17/2016 and 11/14/2012. Therefore, this is likely a stable granuloma or possibly a tiny stable angioma. There are no other lung nodules or masses. There are no infiltrates or pleural effusions. There is no mediastinal, hilar or axillary lymph node enlargement. The thoracic aorta is unremarkable. Cardiac size is normal. There is no pericardial effusion. The visualized upper abdominal contents are unremarkable. A small Bochdalek hernia containing fat but no abdominal organs is incidentally noted on the right, unchanged from all prior studies. Impression: There is a stable nodule in the left upper lobe as described. Otherwise, essentially negative CT study of the chest. Electronically Signed by Chadd Sood MD 11/17/2018 12:51 P
== END ==
LOC: M RAD 11:25
PROVIDERS: ATTEND Physician Assistant Medical
DX: R91.1 Solitary pulmonary nodule (principal)
CPT/HCPCS: 71260; Q9967

== ENCOUNTER → 2019-01-19 | Outpatient (REF) | payer OTHER ==
[~2019-01-19] MED LIST changes: -ISOVUE-370 76% 100ML VIAL (Q9967) As Ordered ONE
[2019-01-19 17:17] LABS: BASO # 0.1 10^3/uL (0.0-0.2); BASO % 0.7 % (0.0-1.0); EOS # 0.2 10^3/uL (0.0-0.50); EOS % 1.7 % (0.0-3.0); HEMATOCRIT 40.4 % (36.0-47.0); HEMOGLOBIN 13.3 g/dl (12.0-15.5); LYMPH # 1.8 10^3/uL (1.5-4.5); LYMPH % 20.2 % (24.0-44.0); MEAN CORPUSCULAR HEMOGLOBIN 30.6 pg (27.0-33.0); MEAN CORPUSCULAR HGB CONC 32.9 g/dl (32.0-36.5); MEAN CORPUSCULAR VOLUME 93.1 fl (80.0-96.0); MONO # 0.5 10^3/uL (0.0-0.8); NEUTROPHILS # 6.5 10^3/uL (1.8-7.7); NEUTROPHILS % 72.1 % (36.0-66.0); PLATELET COUNT, AUTOMATED 313 10^3/uL (150-450); RED BLOOD COUNT 4.34 10^6/uL (4.00-5.40)
[2019-01-19 17:19] LABS: C REACTIVE PROTEIN QUANTITATIV 1.22 MG/DL (0.00-0.30)
[2019-01-19 17:44] LABS: ERYTHROCYTE SEDIMENTATION RATE 12 mm/hr (0-30)
[2019-01-21 16:52] LABS: ALBUMIN 3.8 GM/DL (3.2-5.2); ALT/SGPT 16 U/L (12-78); BILIRUBIN,TOTAL 0.4 MG/DL (0.2-1.0); BLOOD UREA NITROGEN 19 MG/DL (7-18); CALCIUM LEVEL 9.4 MG/DL (8.5-10.1); CARBON DIOXIDE LEVEL 21 MEQ/L (21-32); CHLORIDE LEVEL 109 MEQ/L (98-107); CREATININE FOR GFR 0.77 MG/DL (0.55-1.30); GLOMERULAR FILTRATION RATE > 60.0 (>51); GLUCOSE, FASTING 86 MG/DL (70-100); POTASSIUM SERUM 4.2 MEQ/L (3.5-5.1); SODIUM LEVEL 141 MEQ/L (136-145); TOTAL PROTEIN 7.3 GM/DL (6.4-8.2)
== END ==
LOC: M LABNEURO 13:13
PROVIDERS: ATTEND Internal Medicine Rheumatology
DX: M05.79 Rheumatoid arthritis with rheumatoid factor of multiple sites without organ or systems involvement (principal)

== ENCOUNTER → 2019-01-28 | Outpatient (CLI) | payer OTHER ==
--- NOTE | 2019-01-28 22:33 | REP ---
Clinical: Thyroid nodules. Technique: Real time art scale and color evaluation using linear high frequency transducer. Comparison: 01/08/2018. Findings: The thyroid gland is relatively normal in size and contour with heterogeneous echotexture. The right lobe measures 4.3 x 1.7 x 1.8 cm and includes 7.1 x 4.6 x 6.2 mm complex cyst in the mid pole, 3.1 x 2.4 x 3.3 mm mid/upper pole cyst, and 6.8 x 5.7 x 6.4 mm hypoechoic mid/lower pole nodule. The left lobe measures 4.0 x 1.5 x 1.2 cm and includes 3.0 x 1.5 x 2.8 mm medial complex cyst and 11.2 x 9.0 x 9.3 mm isoechoic posterior mid/lower pole nodule. Impression: Heterogeneous thyroid gland with bilateral nonspecific complex cysts and nodules. Allowing for subtle variations in technique, findings are relatively unchanged as compared to prior examination. Electronically Signed by Ethan Keenan MD 01/28/2019 10:25 P
== END ==
LOC: M RAD 12:18
PROVIDERS: ATTEND Physician Assistant Medical
DX: E04.1 Nontoxic single thyroid nodule (principal)

== ENCOUNTER → 2019-04-20 | Outpatient (REF) | payer OTHER ==
[2019-04-20 18:07] LABS: BASO # 0.1 10^3/uL (0.0-0.2); BASO % 0.6 % (0.0-1.0); EOS # 0.1 10^3/uL (0.0-0.5); EOS % 1.3 % (0.0-3.0); HEMATOCRIT 41.6 % (36.0-47.0); HEMOGLOBIN 13.7 g/dl (12.0-15.5); LYMPH # 2.6 10^3/uL (1.5-5.0); LYMPH % 26.7 % (24.0-44.0); MEAN CORPUSCULAR HEMOGLOBIN 31.1 pg (27.0-33.0); MEAN CORPUSCULAR HGB CONC 32.9 g/dl (32.0-36.5); MEAN CORPUSCULAR VOLUME 94.5 fl (80.0-96.0); MONO # 0.7 10^3/uL (0.0-0.8); MONO % 7.3 % (0.0-5.0); NEUTROPHILS # 6.3 10^3/uL (1.5-8.5); NEUTROPHILS % 63.8 % (36.0-66.0); PLATELET COUNT, AUTOMATED 335 10^3/uL (150-450); WHITE BLOOD COUNT 9.8 10^3/uL (4.0-10.0)
[2019-04-20 18:25] LABS: ALBUMIN 3.8 GM/DL (3.2-5.2); ALT/SGPT 20 U/L (12-78); BILIRUBIN,TOTAL 0.5 MG/DL (0.2-1.0); BLOOD UREA NITROGEN 16 MG/DL (7-18); C REACTIVE PROTEIN QUANTITATIV 1.19 MG/DL (0.00-0.30); CALCIUM LEVEL 9.5 MG/DL (8.5-10.1); CARBON DIOXIDE LEVEL 24 MEQ/L (21-32); CHLORIDE LEVEL 107 MEQ/L (98-107); CREATININE FOR GFR 0.76 MG/DL (0.55-1.30); GLOMERULAR FILTRATION RATE > 60.0 (>51); GLUCOSE, FASTING 121 MG/DL (70-100); SODIUM LEVEL 139 MEQ/L (136-145); TOTAL PROTEIN 7.9 GM/DL (6.4-8.2)
[2019-04-20 18:59] LABS: ERYTHROCYTE SEDIMENTATION RATE 13 mm/hr (0-30)
== END ==
LOC: M LABNEURO 17:12
PROVIDERS: ATTEND Physician Assistant Medical
DX: M05.79 Rheumatoid arthritis with rheumatoid factor of multiple sites without organ or systems involvement (principal)

== ENCOUNTER → 2019-04-22 | Outpatient (REF) | payer OTHER ==
[2019-04-22 14:17] LABS: CK-MB VALUE MASS < 1.0 NG/ML (<3.6); CPK CREATINE PHOSPHOKINASE 65 U/L (26-192); MB/CK RELATIVE INDEX 1.54 (< OR =4); TROPONIN I < 0.02 NG/ML (< 0.10)
== END ==
LOC: M SFHCPLAZ 13:12
PROVIDERS: ATTEND Physician Assistant Medical
DX: R07.89 Other chest pain (principal)

== ENCOUNTER → 2020-01-19 | Outpatient (CLI) | payer OTHER ==
--- NOTE | 2020-02-24 10:21 | REP ---
BILATERAL HAND SERIES: 8-VIEWS HISTORY: Bilateral wrist pain. COMPARISON: 04/13/2018. RIGHT HAND FINDINGS: Four views of the right hand demonstrate diffuse osteopenia, unchanged. There is mild spurring at the IP joint of the thumb and the DIP joint of the index and small fingers. No erosive changes are seen. Soft tissues are unremarkable. IMPRESSION: Mild osteoarthritic change and diffuse osteopenia. LEFT HAND FINDINGS: Four views of the left hand demonstrate diffuse osteopenia. There is a fragmented osteophyte at the IP joint of the thumb, unchanged. No erosive changes are noted. Soft tissues are unremarkable. IMPRESSION: Diffuse osteopenia and mild osteoarthritic changes. No change from 04/13/2018. MTDD
== END ==
LOC: M WUC 09:10
PROVIDERS: ATTEND Internal Medicine Rheumatology
DX: M85.80 Other specified disorders of bone density and structure, unspecified site (principal)

== ENCOUNTER → 2020-01-19 | Outpatient (REF) | payer OTHER ==
[2020-01-19 12:49] LABS: ALBUMIN 3.5 GM/DL (3.2-5.2); ALT/SGPT 15 U/L (12-78); BILIRUBIN,TOTAL 0.2 MG/DL (0.2-1.0); BLOOD UREA NITROGEN 16 MG/DL (7-18); C REACTIVE PROTEIN QUANTITATIV 0.41 MG/DL (0.00-0.30); CALCIUM LEVEL 9.4 MG/DL (8.5-10.1); CARBON DIOXIDE LEVEL 26 MEQ/L (21-32); CHLORIDE LEVEL 112 MEQ/L (98-107); CREATININE FOR GFR 0.67 MG/DL (0.55-1.30); GLOMERULAR FILTRATION RATE > 60.0 (>51); GLUCOSE, FASTING 89 MG/DL (70-100); POTASSIUM SERUM 4.4 MEQ/L (3.5-5.1); SODIUM LEVEL 142 MEQ/L (136-145); TOTAL PROTEIN 7.2 GM/DL (6.4-8.2)
[2020-01-19 13:01] LABS: HEMATOCRIT 42.1 % (36.0-47.0); HEMOGLOBIN 13.5 g/dl (12.0-15.5); MEAN CORPUSCULAR HEMOGLOBIN 30.8 pg (27.0-33.0); MEAN CORPUSCULAR HGB CONC 32.1 g/dl (32.0-36.5); MEAN CORPUSCULAR VOLUME 95.9 fl (80.0-96.0); PLATELET COUNT, AUTOMATED 333 10^3/uL (150-450); RED BLOOD COUNT 4.39 10^6/uL (4.00-5.40); WHITE BLOOD COUNT 8.6 10^3/uL (4.0-10.0)
[2020-01-19 13:02] LABS: ERYTHROCYTE SEDIMENTATION RATE 15 mm/hr (0-30)
== END ==
LOC: M LABSMT 11:17
PROVIDERS: ATTEND Internal Medicine Rheumatology
DX: M05.79 Rheumatoid arthritis with rheumatoid factor of multiple sites without organ or systems involvement (principal)

== ENCOUNTER → 2020-03-16 | Outpatient (REF) | payer OTHER ==
[2020-03-16 16:54] LABS: HEMATOCRIT 35.9 % (36.0-47.0); HEMOGLOBIN 11.7 g/dl (12.0-15.5); MEAN CORPUSCULAR HEMOGLOBIN 29.6 pg (27.0-33.0); MEAN CORPUSCULAR HGB CONC 32.6 g/dl (32.0-36.5); MEAN CORPUSCULAR VOLUME 90.9 fl (80.0-96.0); PLATELET COUNT, AUTOMATED 151 10^3/uL (150-450); RED BLOOD COUNT 3.95 10^6/uL (4.00-5.40); WHITE BLOOD COUNT 3.5 10^3/uL (4.0-10.0)
[2020-03-16 17:12] LABS: ALBUMIN 3.1 GM/DL (3.2-5.2); ALT/SGPT 26 U/L (12-78); BILIRUBIN,TOTAL 0.5 MG/DL (0.2-1.0); BLOOD UREA NITROGEN 13 MG/DL (7-18); C REACTIVE PROTEIN QUANTITATIV 3.06 MG/DL (0.00-0.30); CALCIUM LEVEL 8.6 MG/DL (8.5-10.1); CARBON DIOXIDE LEVEL 26 MEQ/L (21-32); CHLORIDE LEVEL 105 MEQ/L (98-107); GLOMERULAR FILTRATION RATE > 60.0 (>51); GLUCOSE, FASTING 101 MG/DL (70-100); POTASSIUM SERUM 3.7 MEQ/L (3.5-5.1); SODIUM LEVEL 137 MEQ/L (136-145); TOTAL PROTEIN 6.5 GM/DL (6.4-8.2)
[2020-03-16 17:23] LABS: ERYTHROCYTE SEDIMENTATION RATE 15 mm/hr (0-30)
[2020-03-16 17:27] LABS: ATYPICAL LYMPH 2 % (0-5); BASOPHILS 1 % (0-1); EOSINOPHILS 1 % (0-3); LYMPHOCYTES 21 % (16-44); MONOCYTES 7 % (0-5); NEUTROPHILS 68 % (28-66); PLATELET ESTIMATE NORMAL (NORMAL)
== END ==
LOC: M SFHCRHEU 15:06
PROVIDERS: ATTEND Internal Medicine
DX: M06.09 Rheumatoid arthritis without rheumatoid factor, multiple sites (principal)